=== PATIENT | male | born 1990 | race African-American/Black ===

== ENCOUNTER 2024-09-21 16:03 | Emergency (ER) | payer MEDICAID, OTHER ==
[~2024-09-21] VITALS: Ht 175.3 cm; Wt 75.0 kg
[2024-09-21 16:05] VITALS: TEMP 36.7; O2SAT 98
[2024-09-21] MEDS ORDERED: KETOROLAC 30MG/ML VIAL IM ONE (16:45)
[2024-09-21] MEDS ORDERED: MAGNESIUM/ALUMINUM HYDROXIDE/SIMETHICONE 30ML UDC PO ONE (16:45)
[2024-09-21] MEDS ORDERED: FAMOTIDINE 20MG TABLET PO ONE (16:45)
[2024-09-21] MEDS ORDERED: ONDANSETRON 4MG ODT PO ONE (16:45)
[2024-09-21 17:43] LABS: BASOPHILS % 0.7 % (0.0-2.0); EOSINOPHILS % 3.3 % (0.0-5.0); HEMATOCRIT. 38.0 % (42.0-52.0); HEMOGLOBIN. 13.0 g/dL (14.0-18.0); LYMPHOCYTES % 36.6 % (20.0-50.0); MEAN PLATELET VOLUME 6.3 fl (7.4-10.4); MONOCYTES % 12.2 % (2.0-8.0); NEUTROPHILS % 47.2 % (40.0-76.0); PLATELET 287 x1000/uL (130-400); RED BLOOD CELL COUNT 4.05 mill/uL (4.7-6.1); RED CELL DISTRIBUTION WIDTH 13.8 % (11.6-14.6)
[2024-09-21 18:02] LABS: CREATININE 1.3 mg/dL (0.6-1.3); UREA NITROGEN BLOOD 9 mg/dL (9-23)
[2024-09-21 18:04] LABS: ASPARTATE AMINOTRANSFERASE 43 IU/L (<34); BILIRUBIN DIRECT 0.3 mg/dL (<=3.0); BILIRUBIN TOTAL 0.9 mg/dL (0.1-1.0); PROTEIN TOTAL 6.5 g/dL (6.0-8.3)
[2024-09-21] MEDS ORDERED: FAMO40TA7 MT (19:23)
[2024-09-21 19:36] LABS: CLARITY URINE CLEAR (CLEAR); COLOR URINE YELLOW (YELLOW); GLUCOSE URINE NEGATIVE (NEGATIVE); KETONES URINE NEGATIVE (NEGATIVE); LEUKOCYTE ESTERASE URINE NEGATIVE (NEGATIVE); NITRITE URINE NEGATIVE (NEGATIVE); OCCULT BLOOD URINE NEGATIVE (NEGATIVE); PH URINE 7.5 (4.5-8.0); PROTEIN URINE NEGATIVE (NEGATIVE); SPECIFIC GRAVITY URINE 1.012 (1.005-1.030); UROBILINOGEN URINE 1.0 E.U./dL (0.2-1.0)
[2024-09-21] MEDS: ONDANSETRON 4MG ODT PO NR (19:45)
[2024-09-21] MEDS: MAGNESIUM/ALUMINUM HYDROXIDE/SIMETHICONE 30ML UDC PO NR (19:45)
[2024-09-21] MEDS: FAMOTIDINE 20MG TABLET PO NR (19:45)
[2024-09-21] MEDS: KETOROLAC 30MG/ML VIAL IM NR (19:48)
[2024-09-21 19:53] VITALS: BP 129/70; PULSE 95; RESP 12; O2SAT 100
== END 2024-09-21 20:36 | disposition home or self-care (01) ==
LOC: ER 16:03
DX: R10.13 Epigastric pain (principal); R11.2 Nausea with vomiting, unspecified
CPT/HCPCS: 99284; 80076; 80048; 81003; 83690; 85025; 36415; 96372; J1885; Q0162

== ENCOUNTER 2024-09-25 19:49 | Emergency (ER) | payer MEDICAID ==
[~2024-09-25] VITALS: Ht 167.6 cm; Wt 66.0 kg
[~2024-09-25 19:49] MED LIST: FAMO40TA7 MT
[2024-09-25 20:38] VITALS: O2SAT 98
[2024-09-25 21:25] LABS: *AMPHETAMINES SCREEN URINE NEGATIVE (NEGATIVE); *BARBITURATES SCREEN URINE NEGATIVE (NEGATIVE); *BENZODIAZEPINES SCREEN URINE NEGATIVE (NEGATIVE); *COCAINE SCREEN URINE NEGATIVE (NEGATIVE); CANNABINOID URINE SCREEN PRESUMPTIVE POSITIVE (NEGATIVE); ECSTASY MDMA SCREEN URINE NEGATIVE (NEGATIVE); METHADONE URINE SCREEN NEGATIVE (NEGATIVE); OPIATES URINE SCREEN NEGATIVE (NEGATIVE); PHENCYCLIDINE URINE SCREEN NEGATIVE (NEGATIVE)
[2024-09-25 21:44] LABS: BASOPHILS % 0.8 % (0.0-2.0); EOSINOPHILS % 2.6 % (0.0-5.0); HEMATOCRIT. 39.0 % (42.0-52.0); HEMOGLOBIN. 12.9 g/dL (14.0-18.0); LYMPHOCYTES % 40.3 % (20.0-50.0); MEAN PLATELET VOLUME 6.2 fl (7.4-10.4); MONOCYTES % 11.9 % (2.0-8.0); NEUTROPHILS % 44.4 % (40.0-76.0); PLATELET 292 x1000/uL (130-400); RED BLOOD CELL COUNT 4.04 mill/uL (4.7-6.1); RED CELL DISTRIBUTION WIDTH 13.9 % (11.6-14.6)
[2024-09-25 22:05] LABS: CREATININE 1.3 mg/dL (0.6-1.3); ETHANOL BLOOD < 10 mg/dL (<10); UREA NITROGEN BLOOD 12 mg/dL (9-23)
[2024-09-25 23:22] LABS: ASPARTATE AMINOTRANSFERASE 24 IU/L (<34)
[2024-09-25 23:23] LABS: BILIRUBIN DIRECT 0.2 mg/dL (<=3.0); BILIRUBIN TOTAL 0.5 mg/dL (0.1-1.0); PROTEIN TOTAL 6.1 g/dL (6.0-8.3)
[2024-09-25] MEDS: OLANZAPINE 10MG TABLET PO STA (23:43)
[2024-09-26 08:15] VITALS: BP 116/74; PULSE 80; RESP 16; TEMP 37; O2SAT 100
== END 2024-09-26 08:30 | disposition home or self-care (01) ==
LOC: ER 19:49
DX: R45.851 Suicidal ideations (principal); F20.9 Schizophrenia, unspecified; F41.9 Anxiety disorder, unspecified; F32.A Depression, unspecified; Z98.890 Other specified postprocedural states; Z79.899 Other long term (current) drug therapy; Z20.822 Contact with and (suspected) exposure to COVID-19
CPT/HCPCS: 36415; 80048; 80076; 80305; 80307; 80320; 80329; 85025; 87426; 93005; 99285; G0480